=== PATIENT | male | born 1965 | race Caucasian/White ===

== ENCOUNTER 2020-04-16 06:33 | Day surgery (SDC) | payer BC ==
[2020-04-08 12:14] LABS: BASOPHILS % (AUTO) 0.8 % (0-1); EOSINOPHILS # (AUTO) 0.2 X10'3 (0-0.9); EOSINOPHILS % (AUTO) 2.7 % (0-6); LYMPHOCYTES # (AUTO) 1.6 X10'3 (1.1-4.8); LYMPHOCYTES % (AUTO) 27.6 % (21-51); MEAN CORPUSCULAR HEMOGLOBIN 30.9 PG (27.0-31.0); MEAN CORPUSCULAR HGB CONC 33.7 g/dL (33.0-36.5); MEAN CORPUSCULAR VOLUME 91.9 FL (78-98); MEAN PLATELET VOLUME 8.2 FL (7.4-10.4); MONOCYTES # (AUTO) 0.6 X10'3 (0-0.9); MONOCYTES % (AUTO) 9.9 % (2-12); NEUTROPHILS # (AUTO) 3.4 X10'3 (1.8-7.7); PRE OP HEMATOCRIT 44.4 % (42.0-52.0); PRE OP HEMOGLOBIN 14.9 g/dL (14.0-17.9); PRE OP PLATELET COUNT 226 X10'3 (140-440); RED BLOOD COUNT 4.83 X10'6 (4.70-6.10); RED CELL DISTRIBUTION WIDTH 12.8 % (11.5-14.5)
[2020-04-08 12:30] LABS: ALBUMIN 4.2 G/DL (3.4-5.0); ALBUMIN/GLOBULIN RATIO 1.3 (1.1-1.5); ALKALINE PHOSPHATASE 53 IU/L (46-116); BLOOD UREA NITROGEN 21 MG/DL (7-18); CALCIUM 9.3 MG/DL (8.5-10.1); CHLORIDE 105 MMOL/L (99-107); PRE OP ALT 22 U/L (30-65); PRE OP ANION GAP 7 (8-16); PRE OP AST 13 U/L (10-37); PRE OP BILIRUB, TOTAL 0.4 MG/DL (0.0-1.0); PRE OP GLUCOSE 159 MG/DL (70-104); PRE OP POTASSIUM 4.3 MMOL/L (3.4-5.1); PRE OP SODIUM 140 MMOL/L (135-145); TOTAL CARBON DIOXIDE 27.7 MMOL/L (24-32); TOTAL PROTEIN 7.4 G/DL (6.4-8.2); eGFR 78 ML/MIN
[~2020-04-16] VITALS: Ht 188 cm; Wt 93.0 kg
[2020-04-16] VITALS (11 sets, daily range): BP systolic 119–136; BP diastolic 74–91
[~2020-04-16 06:33] MED LIST: DAPA5TAB PO; INDOCYANINE GREEN 25 MG/10 ML VIAL IV ONE; METF-438 PO; ceFAZolin 2gm in dextrose, iso 50 ML IV ONE; famotidine 20mg tablet PO ONE; ringers solution, lacted 1,000 ML IV SCH
[2020-04-16] MEDS ORDERED: BUPIVAcaine/PF 2.5 mg/ml (0.25%) 30ml vial ONE (06:34)
[2020-04-16] MEDS ORDERED: LIDOcaine 1% 30ml preserv. free vial ONE (06:34)
[2020-04-16] MEDS ORDERED: fentaNYL/PF 50MCG/1 ML 2ML syringe ONE (07:59)
[2020-04-16] MEDS ORDERED: midazolam 1 mg/ML 2ml injection ONE (07:59)
[2020-04-16] MEDS ORDERED: propofol inj 20 ML IV ONE (08:02)
[2020-04-16] MEDS ORDERED: rocuronium 10mg/ml inj IV ONE (08:02)
[2020-04-16] MEDS ORDERED: dexamethasone sod phosphate 4mg/ml inj. ONE (08:11)
[2020-04-16] MEDS ORDERED: ondansetron/PF 4mg/2ml inj ONE (08:30)
[2020-04-16] MEDS ORDERED: ringers solution, lacted 1,000 ML IV SCH (08:40)
[2020-04-16] MEDS ORDERED: morphine 4 MG/ML inj SYRINge IV PRN (08:40)
[2020-04-16] MEDS ORDERED: meperidine/PF 25mg/ml syringe IV PRN ×3 (08:40)
[2020-04-16] MEDS ORDERED: morphine 2 MG/ML inj. syringe IV PRN (08:40)
[2020-04-16] MEDS ORDERED: proCHLORperazine 10 MG/2 ml inj IV PRN (08:40)
[2020-04-16] MEDS ORDERED: ondansetron/PF 4mg/2ml inj IV PRN (08:40)
[2020-04-16] MEDS ORDERED: glycopyrrolate 0.2mg/ml inj ONE (09:10)
[2020-04-16] MEDS ORDERED: neostigmine methylsulfate 1 MG/ML 10ml vial ONE (09:10)
[2020-04-16] MEDS ORDERED: HYDROcodone/acetaminophen 10/325mg tab PO PRN (09:30)
[2020-04-16] MEDS ORDERED: HYDROcodone/acetaminophen 5mg/325mg tablet PO PRN (09:30)
--- NOTE | 2020-04-16 09:30 | NUR ---
ADMITTED TO PACU FROM OR ACCOMPANIED BY ANESTHESIA. INTIAL PHYSICAL ASSESSMENT DONE AND RECORDED. REPORT RECEIVED FROM ANESTHESIA.
--- NOTE | 2020-04-16 11:00 | NUR ---
DISCHARGE CRITERIA MET, DISCHARGE INSTRUCTIONS GIVEN, DEMONSTRATES VERBAL UNDERSTANDING. DISCHARGED HOME IN GOOD CONDITION.
== END 2020-04-16 11:00 | disposition home or self-care (01) ==
LOC: PRE-OP 06:33 → PAS 11:00
PROVIDERS: ATTEND Surgery
DX: K80.10 Calculus of gallbladder with chronic cholecystitis without obstruction (principal); E11.9 Type 2 diabetes mellitus without complications; F17.290 Nicotine dependence, other tobacco product, uncomplicated; G43.909 Migraine, unspecified, not intractable, without status migrainosus; K08.409 Partial loss of teeth, unspecified cause, unspecified class; Z79.84 Long term (current) use of oral hypoglycemic drugs; Z79.899 Other long term (current) drug therapy; Z72.89 Other problems related to lifestyle; Z88.8 Allergy status to other drugs, medicaments and biological substances; Z82.49 Family history of ischemic heart disease and other diseases of the circulatory system; Z83.3 Family history of diabetes mellitus; Z80.0 Family history of malignant neoplasm of digestive organs
CPT/HCPCS: 36415; 47563; 80053; 82948; 85025; 93005; J1100; J2001; J2250; J2270; J2405; J2704; J2710; J3010; J3490; J7120; S2900; A4215; A4618; A7000